=== PATIENT | male | born 1985 | race African-American/Black ===

== ENCOUNTER 2019-10-02 08:10 | Emergency (ER) | payer BC ==
[2019-10-02] MEDS ORDERED: Ondansetron 4 MG/2 ML SDV IVPUSH ONE ×2 (08:20→09:10)
[2019-10-02] MEDS ORDERED: Sodium Chloride 0.9% 1,000 ML IV ONE (08:20)
[2019-10-02] MEDS ORDERED: Pantoprazole 40 MG Vial IVPUSH ONE (08:20)
[2019-10-02] MEDS ORDERED: Morphine 4 MG/ML Syringe IVPUSH ONE (08:20)
[2019-10-02] MEDS ORDERED: Water For Injection, Sterile 20 ML ONE (08:24)
[2019-10-02] MEDS ORDERED: HYDROmorphone 1 MG/ML Syringe IVPUSH ONE (08:27)
--- NOTE | 2019-10-02 08:27 | EDM.PDOC ---
ED HPI GENERAL MEDICAL PROBLEM - General Chief Complaint: Abdominal Pain Stated Complaint: ABDOMINAL PAIN Time Seen by Provider: 10/02/19 08:20 Source of Information: Reports: Patient History Limitations: Reports: No Limitations - History of Present Illness INITIAL COMMENTS - FREE TEXT/NARRATIVE: HISTORY AND PHYSICAL: History of present illness: Patient is a 34-year-old male who presents to the emergency room today with complaints of epigastric pain. He reports last evening he had a normal day and was able to fall asleep without any difficulty. He slept throughout the night but was woken up with severe epigastric pain. He describes the pain as a sharp stabbing pain which starts in the epigastric area and radiates to his mid sternal chest. Has some nausea and dizziness associated with the pain. He states nothing improves or makes the pain worse. Patient denies any fever, chills, headache, change in vision, syncope or near syncope. Denies any neck/ back pain, shortness of breath or cough. Denies any vomiting, diarrhea, constipation or dysuria. Denies any testicular pain/redness or erythema. Has not noted any blood in urine or stool. Patient has been eating and drinking appropriately. Review of systems: As per history of present illness and below otherwise all systems reviewed and negative. Past medical history: As per history of present illness and as reviewed below otherwise noncontributory. Surgical history: As per history of present illness and as reviewed below otherwise noncontributory. Social history: See social history for further information Family history: As per history of present illness and as reviewed below otherwise noncontributory. Physical exam: General: Well developed and well nourished 34 year old male. A & O x 3. Nontoxic appearing but in moderate discomfort due to pain. HEENT: Atraumatic, normocephalic, pupils equal and reactive bilaterally, negative for conjunctival pallor or scleral icterus, mucous membranes moist, trachea midline. No drooling or trismus noted. No meningeal signs. No hot potato voice noted. Lungs: Clear to auscultation, breath sounds equal bilaterally, chest nontender. Heart: S1S2, regular rate and rhythm without overt murmur Abdomen: Soft, obese, with epigastric tenderness. Negative for masses. Negative for costovertebral tenderness. Pelvis: Stable nontender. Skin: Intact, warm, dry. No lesions or rashes noted. Extremities: Atraumatic, moves all extremities per self without difficulty or deficits. Neurovascular unremarkable. Neuro: Awake, alert, oriented. Cranial nerves II through XII unremarkable. Cerebellum unremarkable. Motor and sensory unremarkable throughout. Exam nonfocal. Notes: Patient's labs and imaging are unremarkable. Vital signs have improved. We discussed the importance of follow up with general surgeon for further care and management. Supportive care measures were reviewed and discussed. Voices understanding and is agreeable to plan of care. Denies any further questions or concerns at this time. Diagnostics: CBC, CMP, Troponin, EKG, Chest x-ray, UA Therapeutics: IV fluids, Zofran, Protonix, Morphine Prescription: Zofran (#8) Impression: Epigastric Pain Plan: 1. [place] diet, advance as tolerated. Encourage plenty of fluids to prevent dehydration. 2. Tylenol and/or ibuprofen as needed for pain management. 3. Please follow-up with the general surgeon as we discussed. Return to the ED as needed and as discussed. Definitive disposition and diagnosis as appropriate pending reevaluation and review of above. Onset: Today Duration: Hour(s): Location: Reports: Abdomen (Epigastrium to midchest) Quality: Reports: Sharp Severity: Severe Improves with: Reports: None upper abdominal pain Pain Score (Numeric/FACES): 10 - Related Data Allergies Allergy/AdvReac Type Severity Reaction Status Date / Time bee pollen Allergy Anaphylactic Verified 10/02/19 08:15 Shock shellfish derived Allergy Anaphylactic Verified 10/02/19 08:15 Shock Home Meds: Home Meds Ondansetron [Zofran ODT] 4 mg PO Q6H PRN #8 tab.dis 10/02/19 [Rx] Past Medical History Respiratory History: Reports: Asthma - Infectious Disease History Infectious Disease History: Reports: Chicken Pox - Past Surgical History Other Musculoskeletal Surgeries/Procedures:: knee surgeries Social & Family History - Family History Family Medical History: Noncontributory - Tobacco Use Smoking Status *Q: Never Smoker - Recreational Drug Use Recreational Drug Use: No ED ROS GENERAL - Review of Systems Review Of Systems: Comprehensive ROS is negative, except as noted in HPI. ED EXAM, GI/ABD - Physical Exam Exam: See Below (See dictation) Course - Vital Signs Last Recorded V/S: Last Vital Signs Temp 94.8 F L 10/02/19 09:31 Pulse 86 10/02/19 09:31 Resp 16 10/02/19 09:31 BP 155/95 H 10/02/19 09:31 Pulse Ox 94 L 10/02/19 09:31 - Orders/Labs/Meds Orders: Active Orders 24 hr Category Date Time Status EKG Documentation Completion [RC] STAT Care 10/02/19 08:27 Active Labs: Laboratory Tests 10/02/19 10/02/19 10/02/19 Range/Units 08:22 08:22 08:22 WBC 6.49 (4.0-11.0) K/uL RBC 4.70 (4.50-5.90) M/uL Hgb 13.5 (13.0-17.0) g/dL Hct 42.5 (38.0-50.0) % MCV 90.4 (80.0-98.0) fL MCH 28.7 (27.0-32.0) pg MCHC 31.8 (31.0-37.0) g/dL RDW Std Deviation 48.1 (28.0-62.0) fl RDW Coeff of Franck 14 (11.0-15.0) % Plt Count 247 (150-400) K/uL MPV 10.90 (7.40-12.00) fL Neut % (Auto) 55.9 (48.0-80.0) % Lymph % (Auto) 38.5 (16.0-40.0) % [place] % (Auto) 4.5 (0.0-15.0) % Eos % (Auto) 0.8 (0.0-7.0) % Baso % (Auto) 0.3 (0.0-1.5) % Neut # (Auto) 3.6 (1.4-5.7) K/uL Lymph # (Auto) 2.5 H (0.6-2.4) K/uL [place] # (Auto) 0.3 (0.0-0.8) K/uL Eos # (Auto) 0.1 (0.0-0.7) K/uL Baso # (Auto) 0.0 (0.0-0.1) K/uL Nucleated RBC % 0.0 /100WBC Nucleated RBCs # 0 K/uL Sodium 140 (136-148) mmol/L Potassium 3.7 (3.5-5.1) mmol/L Chloride 103 (98-107) mmol/L Carbon Dioxide 28.1 (21.0-32.0) mmol/L BUN 10 (7.0-18.0) mg/dL Creatinine 1.1 (0.8-1.3) mg/dL Est Cr Clr Drug Dosing 114.16 mL/min Estimated GFR (MDRD) > 60.0 ml/min Glucose 168 H (74-106) mg/dL Calcium 8.4 L (8.5-10.1) mg/dL Total Bilirubin 0.5 (0.2-1.0) mg/dL AST 32 (15-37) IU/L ALT 52 (14-63) IU/L Alkaline Phosphatase 88 (46-116) U/L Troponin I < 0.050 (0.000-0.056) ng/mL Total Protein 8.1 (6.4-8.2) g/dL Albumin 3.7 (3.4-5.0) g/dL Globulin 4.4 H (2.6-4.0) g/dL Albumin/Globulin Ratio 0.8 L (0.9-1.6) Lipase 62 L (73-393) U/L Urine Color Urine Appearance Urine pH (5.0-8.0) Ur Specific [place] (1.001-1.035) Urine Protein (NEGATIVE) mg/dL Urine Glucose (UA) (NEGATIVE) mg/dL Urine Ketones (NEGATIVE) mg/dL Urine Occult Blood (NEGATIVE) Urine Nitrite (NEGATIVE) Urine Bilirubin (NEGATIVE) Urine Urobilinogen (<2.0) EU/dL Ur Leukocyte Esterase (NEGATIVE) 10/02/19 Range/Units 09:00 WBC (4.0-11.0) K/uL RBC (4.50-5.90) M/uL Hgb (13.0-17.0) g/dL Hct (38.0-50.0) % MCV (80.0-98.0) fL MCH (27.0-32.0) pg MCHC (31.0-37.0) g/dL RDW Std Deviation (28.0-62.0) fl RDW Coeff of Franck (11.0-15.0) % Plt Count (150-400) K/uL MPV (7.40-12.00) fL Neut % (Auto) (48.0-80.0) % Lymph % (Auto) (16.0-40.0) % [place] % (Auto) (0.0-15.0) % Eos % (Auto) (0.0-7.0) % Baso % (Auto) (0.0-1.5) % Neut # (Auto) (1.4-5.7) K/uL Lymph # (Auto) (0.6-2.4) K/uL [place] # (Auto) (0.0-0.8) K/uL Eos # (Auto) (0.0-0.7) K/uL Baso # (Auto) (0.0-0.1) K/uL Nucleated RBC % /100WBC Nucleated RBCs # K/uL Sodium (136-148) mmol/L Potassium (3.5-5.1) mmol/L Chloride (98-107) mmol/L Carbon Dioxide (21.0-32.0) mmol/L BUN (7.0-18.0) mg/dL Creatinine (0.8-1.3) mg/dL Est Cr Clr Drug Dosing mL/min Estimated GFR (MDRD) ml/min Glucose (74-106) mg/dL Calcium (8.5-10.1) mg/dL Total Bilirubin (0.2-1.0) mg/dL AST (15-37) IU/L ALT (14-63) IU/L Alkaline Phosphatase (46-116) U/L Troponin I (0.000-0.056) ng/mL Total Protein (6.4-8.2) g/dL Albumin (3.4-5.0) g/dL Globulin (2.6-4.0) g/dL Albumin/Globulin Ratio (0.9-1.6) Lipase (73-393) U/L Urine Color YELLOW Urine Appearance CLEAR Urine pH 6.5 (5.0-8.0) Ur Specific [place] 1.020 (1.001-1.035) Urine Protein NEGATIVE (NEGATIVE) mg/dL Urine Glucose (UA) NEGATIVE (NEGATIVE) mg/dL Urine Ketones NEGATIVE (NEGATIVE) mg/dL Urine Occult Blood NEGATIVE (NEGATIVE) Urine Nitrite NEGATIVE (NEGATIVE) Urine Bilirubin NEGATIVE (NEGATIVE) Urine Urobilinogen 0.2 (<2.0) EU/dL Ur Leukocyte Esterase NEGATIVE (NEGATIVE) Meds: Medications Discontinued Medications Generic Name Dose Route Start Last Admin Trade Name Freq PRN Reason Stop Dose Admin Al Hydroxide/Mg Hydroxide 15 0 ml 10/02/19 10:20 ml/ Metoclopramide HCl 5 mg/ PO 10/02/19 10:21 Lidocaine HCl 5 ml ONETIME ONE Hydromorphone HCl 1 mg 10/02/19 08:27 10/02/19 09:11 Dilaudid IVPUSH 10/02/19 08:28 1 mg ONETIME ONE Administration Sodium Chloride 1,000 mls @ 999 mls/hr 10/02/19 08:20 10/02/19 08:30 Normal Saline IV 10/02/19 09:20 999 mls/hr STAT ONE Administration Sterile Water Confirm 10/02/19 08:24 10/02/19 08:30 Sterile Water For Injection Administered 10/02/19 08:25 Not Given Dose 20 mls @ as directed .ROUTE .STK-MED ONE Iopamidol 100 ml 10/02/19 09:44 10/02/19 09:55 Isovue Multipack-370 (76%) IVPUSH 10/02/19 09:45 100 ml ONETIME STA Administration Morphine Sulfate 4 mg 10/02/19 08:20 10/02/19 08:27 Morphine IVPUSH 10/02/19 08:21 4 mg ONETIME ONE Administration Ondansetron HCl 4 mg 10/02/19 08:20 10/02/19 08:29 Zofran IVPUSH 10/02/19 08:21 4 mg ONETIME ONE Administration Ondansetron HCl 4 mg 10/02/19 09:10 10/02/19 09:12 Zofran IVPUSH 10/02/19 09:11 4 mg ONETIME ONE Administration Pantoprazole Sodium 80 mg 10/02/19 08:20 10/02/19 08:29 Protonix Iv IVPUSH 10/02/19 08:21 80 mg .BOLUS ONE Administration Departure - Departure Time of Disposition: 10:21 Disposition: Home, Self-Care 01 Clinical Impression: Epigastric pain - Discharge Information Prescriptions: Ondansetron [Zofran ODT] 4 mg PO Q6H PRN #8 tab.dis PRN Reason: Nausea Instructions: Abdominal Pain, Adult, [id number] Referrals: PCP,None [Primary Care Provider] - Forms: ED Department Discharge Additional Instructions: The following information is given to patients seen in the emergency department who are being discharged to home. This information is to outline your options for follow-up care. We provide all patients seen in our emergency department with a follow-up referral. The need for follow-up, as well as the timing and circumstances, are variable depending upon the specifics of your emergency department visit. If you don't have a primary care physician on staff, we will provide you with a referral. We always advise you to contact your personal physician following an emergency department visit to inform them of the circumstance of the visit and for follow-up with them and/or the need for any referrals to a consulting specialist. The emergency department will also refer you to a specialist when appropriate. This referral assures that you have the opportunity for follow-up care with a specialist. All of these measure are taken in an effort to provide you with optimal care, which includes your follow-up. Under all circumstances we always encourage you to contact your private physician who remains a resource for coordinating your care. When calling for follow-up care, please make the office aware that this follow-up is from your recent emergency room visit. If for any reason you are refused follow-up, please contact the [facility] Emergency Department at and asked to speak to the emergency department charge nurse. [facility] [address] [place] [id number] [address] [facility] - General Surgery Professional Building [address] [place] [address], [address] [place] [address] 1. [place] diet, advance as tolerated. Encourage plenty of fluids to prevent dehydration. 2. Please start a PPI daily for at least 2 weeks (Protonix, Omeprozole, etc...) . Take first thing in the morning. Tylenol and/or ibuprofen as needed for pain management. 3. Please follow-up with the general surgeon as we discussed. Return to the ED as needed and as discussed. - My Orders Last 24 Hours: My Active Orders 10/02/19 08:27 EKG Documentation Completion [RC] STAT - Assessment/Plan Last 24 Hours: My Active Orders 10/02/19 08:27 EKG Documentation Completion [RC] STAT
[2019-10-02 08:54] LABS: BLOOD UREA NITROGEN,BUN 10 mg/dL (7.0-18.0); CARBON DIOXIDE,CO2 28.1 mmol/L (21.0-32.0); CHLORIDE,CL 103 mmol/L (98-107); GLUCOSE RANDOM 168 mg/dL (74-106); LIPASE 62 U/L (73-393); POTASSIUM,K 3.7 mmol/L (3.5-5.1); SODIUM,NA 140 mmol/L (136-148)
[2019-10-02] MEDS ORDERED: Iopamidol 755 MG/ML 500 ML Multipack Bottle IVPUSH STA (09:44)
--- NOTE | 2019-10-02 10:19 | CT ---
EXAM DATE: 10/02/19 PATIENT'S AGE: 34 CT abdomen and pelvis Technique: Multiple axial sections were obtained from above the dome of the diaphragm inferiorly through the pubic symphysis. Intravenous contrast was utilized. Comparison: No prior abdominal imaging. Findings: Visualized lung bases show nothing acute. Liver contains no focal abnormality. Spleen appears within normal limits. Adrenal glands show no nodule. Kidneys show no hydronephrosis or mass. Pancreas appears within normal limits. Gallbladder contains no calcified gallstones. Aorta shows no aneurysm. No retroperitoneal adenopathy or mesenteric abnormalities are seen. Appendix is seen which is normal in size. No pelvic mass or adenopathy is identified. No free fluid or inflammatory change is seen within the abdomen or within the pelvis. Bone window settings were reviewed which appear within normal limits for the patient's age. Impression: 1. Nothing acute is appreciated on CT study of the abdomen and pelvis. Diagnostic code #1 Report Signed by Proxy. RAN
[2019-10-02] MEDS ORDERED: Alum Hydrox/Mag Hydrox/Simeth 15 ML, Metoclopramide 5 MG, Lidocaine 2% 5 ML PO ONE ×3 (10:20)
== END 2019-10-02 10:46 | disposition home or self-care (01) ==
LOC: MW.ED 08:10
DX: R10.13 Epigastric pain (principal); Z91.030 Bee allergy status; Z91.013 Allergy to seafood
CPT/HCPCS: 36415; 74177; 80053; 81003; 83690; 84484; 85025; 93005; 96361; 96374; 96375; 96376; 99284; A9270; C9113; J1170; J2270; J2405; J7040; Q9967